=== PATIENT | female | born 1970 | race Caucasian/White ===

== ENCOUNTER 2021-06-13 23:55 | Emergency (ER) | payer BC ==
[~2021-06-13] VITALS: Ht 162.6 cm; Wt 86.2 kg
[2021-06-14] MEDS ORDERED: LISINOPRIL 5 MG TABL (00:24)
[2021-06-14] MEDS ORDERED: Simvastatin10 MG PO (00:24)
[2021-06-14] MEDS ORDERED: TIMO10T ×2 (00:24→00:25)
[2021-06-14] MEDS ORDERED: LISI5 PO (00:25)
[2021-06-14] MEDS ORDERED: PROG100 PO (00:25)
== END 2021-06-14 02:04 | disposition home or self-care (01) ==
LOC: ER 23:55
DX: I10 Essential (primary) hypertension (principal); Z79.899 Other long term (current) drug therapy
CPT/HCPCS: 99284